=== PATIENT | male | born 1995 ===

== ENCOUNTER 2016-09-09 22:12 | Emergency (ER) | payer SELFPAY ==
[2016-09-09 22:35] VITALS: BP 115/50; PULSE 62; RESP 16; TEMP 98.2; O2SAT 100
--- NOTE | 2016-09-09 22:47 | ED PDOC ---
HPI: Back Time Seen by Provider: 09/09/16 22:43 Chief Complaint (Nursing): Back Pain Chief Complaint (Provider): back strain History Per: Patient (21 y/o male here for evaluation of lower back pain exacerbated by lifting at work yesterday. 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 Denies any urinary or rectal incontinence.) Past Medical History Reviewed: Historical Data, Nursing Documentation, Vital Signs Vital Signs: Last Vital Signs Temp 98.2 F 09/09/16 22:31 Pulse 62 09/09/16 22:31 Resp 16 09/09/16 22:31 BP 115/50 L 09/09/16 22:31 Pulse Ox 100 09/09/16 22:31 - Medical History PMH: Asthma, Depression - Family History Family History: States: No Known Family Hx - Home Medications Home Medications: Ambulatory Orders Medication Instructions Recorded Nicotine 7 mg/24 hr [Nicoderm CQ] 1 patch TD DAILY #30 patch 12/26/15 Sertraline [Zoloft] 25 mg PO DAILY #30 tab 12/26/15 traMADol [Ultram] 50 mg PO TID PRN #10 tab 03/19/16 Naproxen [Naprosyn Tab] 375 mg PO Q8 PRN #21 tab 09/09/16 - Allergies Allergies/Adverse Reactions: Allergies Allergy/AdvReac Type Severity Reaction Status Date / Time onion Allergy ANAPHYLAXIS Verified 12/23/15 10:55 pear Allergy ANAPHYLAXIS Verified 12/23/15 10:55 Review of Systems ROS Statement: Except As Marked, All Systems Reviewed And Found Negative Musculoskeletal: Positive for: Back Pain Physical Exam - Reviewed Nursing Documentation Reviewed: Yes Vital Signs Reviewed: Yes - Physical Exam Appears: Positive for: Well, Non-toxic, No Acute Distress Head Exam: Positive for: ATRAUMATIC, NORMAL INSPECTION, NORMOCEPHALIC Skin: Positive for: Normal Color, Warm, DRY Eye Exam: Positive for: EOMI, Normal appearance, PERRL ENT: Positive for: Normal ENT Inspection Neck: Positive for: Normal, Painless ROM Cardiovascular/Chest: Positive for: Regular Rate, Rhythm Respiratory: Positive for: CNT, Normal Breath Sounds Gastrointestinal/Abdominal: Positive for: Normal Exam, Bowel Sounds, Soft Back: Positive for: Normal Inspection, Vertebral Tenderness (paralumbar tenderness) Extremity: Positive for: Normal ROM Neurologic/Psych: Positive for: Alert, Oriented - ECG O2 Sat by Pulse Oximetry: 100 - Progress ED Course And Treament: toradol 60 mg im ordered, but patient noted sleepy in ED. We woke him up and d/ w him that percocet he took earlier today may be taking effect now. Patient agreeable for d/c at this time. Disposition - Clinical Impression Clinical Impression: Back strain - Patient ED Disposition Is Patient to be Admitted: No - Disposition Referrals: [facility] [place] [Outside] Disposition: Routine/Home Disposition Time: 22:45 Condition: FAIR Prescriptions: Naproxen [Naprosyn Tab] 375 mg PO Q8 PRN #21 tab PRN Reason: Pain, Moderate (4-7) Instructions: Acute Low Back Pain (ED) Forms: [facility] ED School/Work Excuse
== END 2016-09-09 23:17 | disposition home or self-care (01) ==
LOC: H.ER 22:12
DX: M54.5 Low back pain (principal)

== ENCOUNTER 2017-03-15 16:03 | Emergency (ER) | payer OTHER ==
[2017-03-15 16:11] VITALS: BP 112/47; PULSE 54; RESP 16; TEMP 98.5; O2SAT 98
--- NOTE | 2017-03-15 17:27 | ED PDOC ---
HPI: General Adult Time Seen by Provider: 03/15/17 16:19 Chief Complaint (Nursing): ENT Problem Chief Complaint (Provider): Left Ear Pain History Per: Patient History/Exam Limitations: no limitations Onset/Duration Of Symptoms: Days (x1) Have you had recent travel within the past 21 days to any of the following countries: [place], [place], [place] or [place]?: No Current Symptoms Are (Timing): Still Present Pain Scale Rating Of: 4 Additional Complaint(s): Corby Sunshine Jr., a 22 year old male, presents to the ED complaining of left ear pain x1 day. The patient states that this morning he woke up to blood draining from his ear. He states that he took 1 percocet for pain relief. Past Medical History Reviewed: Historical Data, Nursing Documentation, Vital Signs Vital Signs: Last Vital Signs Temp 98.5 F 03/15/17 16:09 Pulse 54 L 03/15/17 16:09 Resp 16 03/15/17 16:09 BP 112/47 L 03/15/17 16:09 Pulse Ox 98 03/15/17 17:31 - Medical History PMH: Asthma, Depression - Surgical History Surgical History: No Surg Hx - Family History Family History: States: Unknown Family Hx - Living Arrangements Living Arrangements: With Family - Home Medications Home Medications: Ambulatory Orders Medication Instructions Recorded Amoxicillin 875 mg PO BID #20 tab 03/15/17 - Allergies Allergies/Adverse Reactions: Allergies Allergy/AdvReac Type Severity Reaction Status Date / Time onion Allergy ANAPHYLAXIS Verified 12/23/15 10:55 pear Allergy ANAPHYLAXIS Verified 12/23/15 10:55 Review of Systems ROS Statement: Except As Marked, All Systems Reviewed And Found Negative ENT: Positive for: Ear Pain (left ear pain) Physical Exam - Reviewed Nursing Documentation Reviewed: Yes Vital Signs Reviewed: Yes - Physical Exam Appears: Positive for: Non-toxic, No Acute Distress Head Exam: Positive for: ATRAUMATIC, NORMAL INSPECTION, NORMOCEPHALIC Skin: Positive for: Normal Color, Warm, Dry. Negative for: Rash Eye Exam: Positive for: Normal appearance, EOMI. Negative for: Nystagmus ENT: Positive for: TM Is/Are (Left tympanic membrane is ruptured), Other (Blood presents in left ear) Neurologic/Psych: Positive for: Alert, Oriented - ECG O2 Sat by Pulse Oximetry: 98 (RA) Pulse Ox Interpretation: Normal Medical Decision Making Medical Decision Makin Initial Impression 22 y/o male presenting with left ear pain Initial Plan: * Reevaluation 1715 Patient will be prescribed antibiotics and instructed to follow up with [employer] plate [employer] offbearer. Scribe Attestation Documented by Daya Curtis acting as a scribe for Mildred Braun PA-C. Scribe Attestation All medical record entries made by the Scribe were at my direction and personally dictated by me. I have reviewed the chart and agree that the record accurately reflects my personal performance of the history, physical exam, medical decision making, and the department course for this patient. I have also personally directed, reviewed, and agree with the discharge instructions and disposition. Disposition - Clinical Impression Clinical Impression: Ruptured tympanic membrane - Patient ED Disposition Is Patient to be Admitted: No Counseled Patient/Family Regarding: Studies Performed, Diagnosis, Need For Followup - Disposition Disposition: Routine/Home Disposition Time: 17:31 Condition: STABLE Prescriptions: Amoxicillin 875 mg PO BID #20 tab Instructions: Ruptured Eardrum (ED) Forms: [facility] ([employer]) - POA Present On Arrival: None
== END 2017-03-15 17:45 | disposition home or self-care (01) ==
LOC: H.ER 16:03
DX: H72.92 Unspecified perforation of tympanic membrane, left ear (principal); J45.909 Unspecified asthma, uncomplicated; Z86.59 Personal history of other mental and behavioral disorders